=== PATIENT | male | born 1995 | race Caucasian/White ===

== ENCOUNTER 2024-01-06 12:25 | Emergency (ER) | payer MEDICAID, SELFPAY ==
[2024-01-06 12:30] VITALS: BP 138/99; PULSE 96; RESP 16; TEMP 37.1; O2SAT 98; BMI 21.5
--- NOTE | 2024-01-06 12:44 | CRLHL7_ITS ---
For Patients: As a result of the Century Cures Act, medical imaging exams and procedure reports are released immediately into your electronic medical record. You may view this report before your referring provider. If you have questions, please contact your health care provider. INDICATION: Abdominal pain, not otherwise described. COMPARISON: None available. TECHNIQUE: Views: 1 FINDINGS: Nondilated bowel. Nonspecific moderate colonic fecal loading. No significant incidental calcifications. The visualized skeleton demonstrates no significant incidental findings. IMPRESSION: Nonspecific moderate colonic fecal loading. No dilated bowel. Dictated by Chandu Massey MD @ 01/06/2024 1:23:11 PM (Electronically Signed)
--- NOTE | 2024-01-06 12:47 | ED.ABDPAIN ---
HPI - Abdominal Pain General Chief Complaint: Abdominal Pain Stated Complaint: vomiting/abdominal pain all night Time Seen by Provider: 01/06/24 12:35 Source: patient Mode of arrival: ambulatory Limitations: no limitations History of Present Illness HPI narrative: 28-year-old male coming in today complaining of vomiting all night long. Patient states that he has terrible diffuse abdominal pain all over. He denies any fevers. Patient states that he has a history of ?chronic GI issues?. He states that he was recently hospitalized in the [facility] system because he had vomiting and an elevated white cell count. He tells me he was hospitalized for 4-5 days, then he tells me he was hospitalized over the weekend. He also tells me that he has had surgery in the past for a ?twisted bowel?. He states that the doctors ?thought I had intussusception?. When I asked him if he did in fact have intussusception, he tells me he does not know. He says that he has frequent bouts of colitis. Patient states that he is on chronic Zofran therapy, however, his insurance lab so he currently does not have a prescription for Zofran. Patient states that he does smoke marijuana, states the last time he smoked was 1 week ago. Related Data Home Medications ?Medication ?Instructions ?Recorded ?Confirmed No Known Home Medications 01/06/24 01/06/24 Allergies Allergy/AdvReac Type Severity Reaction Status Date / Time haloperidol [From Haldol] AdvReac Mild Rash Verified 01/06/24 12:34 iodine AdvReac Mild Rash Verified 01/06/24 12:34 Review of Systems Status of ROS Reports: 10 or more systems reviewed and unremarkable except as noted in History and below PFSH [facility] Social History Smoking Status: Current every day smoker What tobacco products do you use: cigarettes Smoking packs per day: 0.5 Smoking cigarettes per day: 10.0 Do you use any of these nicotine containing products: None How often do you have a drink containing alcohol: never AUDIT-C Alcohol total score: 0 Non-prescribed substance use: marijuana (any form) Exam Narrative: Exam Narrative: Well-nourished well-developed patient in no acute distress. Alert and oriented. Answers questions appropriately. Mood and affect are appropriate. Thoughts are goal oriented and rational. No tangential or magical thinking noted. Patient speaks in full sentences without needing to catch his breath. Smells of cigarette smoke. HEENT: Normocephalic atraumatic. Pupils are equally round reactive to light. Extraocular muscles are intact. Conjunctivae are moist without any icterus noted. Moist mucous membranes. Posterior pharynx is normal. Neck is soft without any lymphadenopathy or thyromegaly. No masses are appreciated. Cardiovascular: Heart is regular rate and rhythm S1 and S2 are present without any murmurs. Lungs: Clear to auscultation bilaterally no wheezes rhonchi or rales are appreciated. Patient takes deep breaths without any discomfort. Abdomen: Soft, nondistended with normal bowel sounds. He has no guarding or rebound tenderness. No masses are appreciated. He does not appear to be uncomfortable with palpation of the abdomen, stethoscope examination does not elicit pain. Extremities: Bilateral lower extremities are without edema. Skin: Well perfused. Const: Vital Signs, click to edit/add: Vital Signs - 24 hr 01/06/24 12:30 01/06/24 14:00 Temperature 98.7 F Pulse Rate [Pulse Oximeter] 96 78 Respiratory Rate 16 Blood Pressure [Ri ght Upper Arm] 138/99 H Pulse Oximetry 98 98 Oxygen Delivery Me thod Room Air Room Air Course Course ED Course: Patient is requesting Dilaudid. I looked on the [place] prescription monitoring program, patient had Suboxone prescribed to him in September. IV was established and all the old patient is given a L of normal saline and IV Zofran. Labs were drawn. He is given Tylenol. In the meantime, I reviewed patient's medical records. He has a note 3 days ago from the ER from [facility] - he was brought in via EMS for a safety check. He was found to be coherent and in no acute distress so was sent home without any treatment. He does not know who called the will for check on him, he states that he had been sleeping all day because he worked at night. He also has an encounter note from [facility] on November 24 he was brought into the ER via EMS for anxiety at that time. Per his medical record he has a long history of substance use disorder including benzodiazepines, opioids and cannabis. He also has multiple criminal charges pending in multiple counties and in [place]. Patient was admitted on 11/11 is 610 for an opioid overdose, not for abdominal pain. Upon further review of his chart from [place], patient had intussusception that was thought to have resolved spontaneously in 2014. He did have a exploratory laparotomy at that time which did not find any evidence of intussusception. Does reports from 2015 also stated that the patient was self reporting Crohn's disease and colitis however there was no medical documentation to back this up, his mother and grandmother both denied this being an issue for him, and he had refused to sign a medical release form to get colonoscopy and pathology records from his previous doctor. Per that medical record, his grandmother also stated that he has a heroin addiction. CBC is unremarkable. Chemistries are normal. LFTs are normal. CRP is normal. Lipase is normal. Lactate is elevated at 2.9. Patient did not vomit while he was here. Discussed results with him. He requested Zofran to be sent via paper script. We discussed follow-up with primary care . Vital Signs Vital signs: Initial Vital Signs Temperature 98.7 F 01/06/24 12:30 Temperature Source Temporal Artery Scan 01/06/24 12:30 Pulse Rate 96 01/06/24 12:30 Respiratory Rate 16 01/06/24 12:30 Blood Pressure 138/99 H 01/06/24 12:30 Blood Pressure Mean 112 H 01/06/24 12:30 Blood Pressure Position Sitting 01/06/24 12:30 Pulse Oximetry 98 01/06/24 12:30 Oxygen Delivery Method Room Air 01/06/24 12:30 Vital Signs Temperature 98.7 F 01/06/24 12:30 Pulse Rate 96 01/06/24 12:30 Respiratory Rate 16 01/06/24 12:30 Blood Pressure 138/99 H 01/06/24 12:30 Pulse Oximetry 98 01/06/24 12:30 Oxygen Delivery Method Room Air 01/06/24 12:30 Temperature 98.7 F 01/06/24 12:30 Pulse Rate 78 01/06/24 14:00 Respiratory Rate 16 01/06/24 12:30 Blood Pressure 138/99 H 01/06/24 12:30 Pulse Oximetry 98 01/06/24 14:00 Oxygen Delivery Method Room Air 01/06/24 14:00 Medications Administered Medications: Discontinued Medications Generic Name Dose Route Start Last Admin Trade Name Freq PRN Reason Stop Dose Admin Acetaminophen 1,000 mg 01/06/24 13:12 01/06/24 13:32 Acetaminophen 500 Mg Tablet PO 01/06/24 13:13 1,000 mg ONCE ONE Administration Sodium Chloride 1,000 mls @ 1,000 mls/hr 01/06/24 12:45 01/06/24 14:01 0.9 % Sodium Chloride 1000 Ml IV 01/06/24 13:44 Infused .Q1H TRACY Infusion Ondansetron HCl 4 mg 01/06/24 12:44 01/06/24 13:15 Ondansetron 2 Mg/Ml Inj IVP 01/06/24 12:45 4 mg ONCE ONE Administration MDM - Abdominal Pain MDM Narrative Medical decision making narrative: 28-year-old male with complex medical history including 1 polysubstance abuse disorder. Presenting with vomiting and abdominal pain. Workup was unremarkable. Patient discharged home in stable condition. Medical Records Attestation: I reviewed the patient's medical records. Lab Data Attestation: I reviewed the patient's lab results. Labs: Lab Results 01/06/24 Range/Units 13:00 WBC 10.08 (4.50-11.00) K/uL RBC 5.47 (4.30-5.90) m/uL Hgb 16.2 (13.5-17.5) gm/dL Hct 46.3 (37.0-53.0) % MCV 85 (80-100) fL MCH 30 (26-34) pg MCHC 35 (32-36) gm/dL RDW Coeff of Devendra 12.7 (11.5-15.5) % Plt Count 340 (140-440) K/uL Neut % (Auto) 80.1 H (42.0-72.0) % Lymph % (Auto) 11.9 L (20-44) % Bleckley % (Auto) 7.4 (0.0-11.0) % Eos % (Auto) 0.2 (0.0-7.0) % Baso % (Auto) 0.2 (0.0-3.0) % Neut # (Auto) 8.10 H (1.7-7.0) K/uL Lymph # (Auto) 1.20 (0.90-2.90) K/uL Bleck[place] # (Auto) 0.70 (0.00-0.90) K/UL Eos # (Auto) 0.02 (0.00-0.50) K/uL Baso # (Auto) 0.02 (0.00-0.30) K/uL Abs Immat Gran (auto) 0.02 (0.00-0.30) K/uL Imm/Tot Granulo (auto) 0.2 % Sodium 136 (135-149) mmol/L Potassium 4.1 (3.6-5.1) mmol/L Chloride 102 (96-114) mmol/L Carbon Dioxide 24 (20-32) mmol/L Anion Gap 10 (7-15) mEq/L BUN 17 (5-24) mg/dL Creatinine 0.6 (0.5-1.5) mg/dL Estimated Creat Clear 176.40 Estimated GFR 135 ml/min Glucose 111 (60-115) mg/dL Lactate 2.9 H (0.5-1.9) mmol/L Calcium 10.0 (8.4-10.6) mg/dL Total Bilirubin 1.1 (0.1-1.5) mg/dL Direct Bilirubin 0.3 (0.0-0.5) mg/dL AST 29 (12-35) U/L ALT 23 (4-50) U/L Alkaline Phosphatase 51 (40-150) U/L C-Reactive Protein < 0.5 L (0.5-1.0) mg/dL Total Protein 7.9 (6.0-8.3) g/dL Albumin 5.2 H (3.3-5.0) g/dL Lipase 36 (23-300) U/L Imaging Data Abdominal x-ray: Attestation: I have reviewed the pertinent imaging results. Radiologist's impression: Views: 1 FINDINGS: Nondilated bowel. Nonspecific moderate colonic fecal loading. No significant incidental calcifications. The visualized skeleton demonstrates no significant incidental findings. IMPRESSION: Nonspecific moderate colonic fecal loading. No dilated bowel. Discharge Plan Discharge Clinical Impression: Vomiting Patient Disposition: Home, Self-Care Condition: Stable Additional Instructions: Take Zofran as needed. Recommend stopping the use of marijuana. 10 tablets of Zofran sent via paper script per patient request. Prescriptions: No Action No Known Home Medications Follow Up/Referrals: Provider,Not a Local [Primary Care Provider] - Stand Alone [facility]: [facility] Info Instructions
[2024-01-06] MEDS: 0.9 % SODIUM CHLORIDE 1000 ml 1,000 ML IV (13:12)
[2024-01-06 13:14] LABS: Lactate* 2.9 mmol/L (0.5-1.9)
[2024-01-06] MEDS: ONDANSETRON 2 MG/ML inj 4 MG IVP (13:15)
[2024-01-06 13:25] LABS: Basophils Absolute Auto 0.02 K/uL (0.00-0.30); Basophils Percent Auto 0.2 % (0.0-3.0); Eosinophils Absolute Auto 0.02 K/uL (0.00-0.50); Eosinophils Percent Auto 0.2 % (0.0-7.0); Hematocrit 46.3 % (37.0-53.0); Hemoglobin* 16.2 gm/dL (13.5-17.5); Immature Granulocytes Abs Auto 0.02 K/uL (0.00-0.30); Immature Granulocytes Pct Auto 0.2 %; Lymphocytes Percent Auto 11.9 % (20-44); Mean Corpuscular HGB Conc 35 gm/dL (32-36); Mean Corpuscular Hemoglobin 30 pg (26-34); Mean Corpuscular Volume 85 fL (80-100); Monocytes Percent Auto 7.4 % (0.0-11.0); Neutrophils Percent Auto 80.1 % (42.0-72.0); Platelet Count* 340 K/uL (140-440); RDW Coefficient of Variation % 12.7 % (11.5-15.5); Red Blood Count 5.47 m/uL (4.30-5.90); White Blood Count* 10.08 K/uL (4.50-11.00)
[2024-01-06 13:31] LABS: Albumin* 5.2 g/dL (3.3-5.0); Chloride* 102 mmol/L (96-114)
[2024-01-06 13:32] LABS: Potassium* 4.1 mmol/L (3.6-5.1); Sodium* 136 mmol/L (135-149)
[2024-01-06] MEDS: ACETAMINOPHEN 500 MG TABLET 1000 MG PO (13:32)
[2024-01-06 13:34] LABS: Alkaline Phosphatase* 51 U/L (40-150); Anion Gap 10 mEq/L (7-15); Aspartate Amino Transferase* 29 U/L (12-35); Bilirubin Direct* 0.3 mg/dL (0.0-0.5); Bilirubin Total* 1.1 mg/dL (0.1-1.5); Carbon Dioxide* 24 mmol/L (20-32); Creatinine* 0.6 mg/dL (0.5-1.5); Estimated Glomerular Filt Rate 135 ml/min; Total Protein* 7.9 g/dL (6.0-8.3)
[2024-01-06 13:35] LABS: Alanine Aminotransferase* 23 U/L (4-50); Blood Urea Nitrogen* 17 mg/dL (5-24); Glucose* 111 mg/dL (60-115); Lipase* 36 U/L (23-300)
[2024-01-06 13:37] LABS: Slide Review Reflex No
[2024-01-06 13:41] LABS: C Reactive Protein* < 0.5 mg/dL (0.5-1.0)
[2024-01-06 14:00] VITALS: PULSE 78; O2SAT 98
[2024-01-06 14:05] LABS: Erythrocyte SedimentationRate* 2 mm/hr (2-15)
== END 2024-01-06 14:09 | disposition home or self-care (01) ==
PROVIDERS: Emergency Provider Family Medicine
DX: R11.10 Vomiting, unspecified (principal)
CPT/HCPCS: 36415; 74019; 80048; 80076; 81001; 83605; 83690; 85025; 85651; 86140; 87086; 96374; 99283; 99284; A9270; J2405; J7030